=== PATIENT | male | born 1965 | race Caucasian/White ===

== ENCOUNTER 2017-06-30 18:20 | Emergency (ER) | payer BC ==
[2017-06-30 19:49] VITALS: BP 118/71
--- NOTE | 2017-06-30 19:59 | UC ---
Respiratory Complaint HPI - HPI Summary HPI Summary: Pt presents with ongoing cough and hoarseness. He tells me that about a month ago he started with post nasal drip and a dry cough. A few days later his symptoms were followed by a hoarse voice. He tried to treat his symptoms OTC with cold and flu medication, but had no relief. He was seen at the ED about a week ago and rx'd 10 days of prednisone for bronchitis. He is here today with continued symptoms. He tells me his hoarseness has slightly improved, but still present. He also has developed a left earache. Denies SOB, chest pain, ST, abdominal pain, N/V/D/C - History of Current Complaint Chief Complaint: UCGeneralIllness Stated Complaint: COUGH/CONGESTION/SORE THROAT Time Seen by Provider: 06/30/17 19:49 Hx Obtained From: Patient Onset/Duration: Gradual Onset Severity Initially: Mild Severity Currently: Moderate Character: Cough: Nonproductive - Allergies/Home Medications Allergies/Adverse Reactions: Allergies Allergy/AdvReac Type Severity Reaction Status Date / Time Albuterol Allergy Severe RESPIRATORY Verified 06/30/17 19:40 "SPASM" PMH/Surg Hx/FS Hx/Imm Hx Respiratory History: Asthma Psychological History: Anxiety, Depression - Surgical History Surgical History: Yes Surgery Procedure, Year, and Place: CHOLECYSTECTOMY. DEVIATED SEPTUM SX NOSE. CYSTECTOMY FROM BACK OF HEAD - Social History Occupation: Employed Full-time Lives: With Family Alcohol Use: None Substance Use Type: None Smoking Status (MU): Never Smoked Tobacco - Immunization History Most Recent Influenza Vaccination: 2017 Review of Systems Constitutional: Negative Skin: Negative Eyes: Negative ENT: Ear Ache, Other - Post nasal drip Respiratory: Cough Cardiovascular: Negative Gastrointestinal: Negative Psychological: Negative All Other Systems Reviewed And Are Negative: Yes Physical Exam Triage Information Reviewed: Yes Appearance: Well-Appearing, Well-Nourished Vital Signs: Initial Vital Signs Temp 97.5 F 06/30/17 19:42 Pulse 70 06/30/17 19:42 Resp 16 06/30/17 19:42 BP 118/71 06/30/17 19:42 Pulse Ox 97 06/30/17 19:42 Vital Signs Reviewed: Yes Eyes: Positive: Conjunctiva Clear. Negative: Conjunctiva Inflamed, Discharge ENT: Positive: Hearing grossly normal, Pharynx normal, TM bulging - Left ear, TM red - Left ear, Hoarse voice, Uvula midline. Negative: Pharyngeal erythema, Nasal congestion, Nasal drainage, Tonsillar swelling, Tonsillar exudate, Sinus tenderness Neck: Positive: Supple, Nontender, No Lymphadenopathy Respiratory: Positive: Chest non-tender, Lungs clear, Normal breath sounds, No respiratory distress, No accessory muscle use Cardiovascular: Positive: RRR, No Murmur, Pulses Normal Neurological: Positive: Alert Psychological: Positive: Age Appropriate Behavior Skin: Negative: rashes UC Diagnostic Evaluation - Laboratory O2 Sat by Pulse Oximetry: 97 Respiratory Course/Dx - Course Course Of Treatment: Left otitis media - Amoxicillin for 10 days. Pt states that he has a significant history of sleep apnea and GERD for which he is followed by his PCP. Given his new and persisting hoarseness, I advised him to follow up with his PCP within the month for potentional investigation. - Differential Dx/Diagnosis Differential Diagnosis/HQI/PQRI: Asthma, Bronchitis, Influenza, Laryngitis, Lower Resp Infection, Sinusitis Provider Diagnoses: Left otitis media. Bronchitis. Hoarseness Discharge - Discharge Plan Condition: Stable Disposition: HOME Prescriptions: Amoxicillin PO (*) [Amoxicillin 500 MG CAP*] 500 mg PO Q12H #20 cap Patient Education Materials: Sinusitis (ED), Acute Bronchitis (ED) Referrals: Non Staff,Doctor [Medical Doctor] - Additional Instructions: Please follow up with your PCP within 2-4 weeks for persistent laryngitis and voice changes. May take OTC plain mucinex BID. Drink plenty of fluids and use your at home inhaler as needed for your cough. If you develop a fever, SOB, chest pain, new or worsening symptoms - please call your PCP or go to the ED.
== END 2017-06-30 20:14 | disposition home or self-care (01) ==
LOC: UCCORT 18:20
DX: J40 Bronchitis, not specified as acute or chronic (principal); H66.92 Otitis media, unspecified, left ear; R49.0 Dysphonia; J45.909 Unspecified asthma, uncomplicated; Z88.1 Allergy status to other antibiotic agents
CPT/HCPCS: 99212; G0463

== ENCOUNTER 2017-08-18 16:47 | Emergency (ER) | payer BC | END 2017-08-18 18:20 | disposition left against medical advice (07) | LOC: UCCORT 16:47 | DX: R07.81 Pleurodynia (principal); M54.9 Dorsalgia, unspecified; R05 Cough; Z53.21 Procedure and treatment not carried out due to patient leaving prior to being seen by health care provider ==